=== PATIENT | female | born 1965 | race African-American/Black ===

== ENCOUNTER 2023-10-03 05:03 | Day surgery (SDC) | payer OTHER ==
[2023-09-30 08:18] VITALS: BMI 32.5
[2023-10-03] MEDS ORDERED: ROPIVACAINE HCL 0.5% 30ML VIAL ONE (11:00)
[2023-10-03] MEDS ORDERED: LIDOCAINE HCL 2% (20ML MULTI-DOSE VIAL) ONE (11:00)
[2023-10-03] MEDS ORDERED: MIDAZOLAM HCL 2 MG/2 ML SINGLE DOSE VIAL ONE ×2 (11:01→11:23)
[2023-10-03] MEDS ORDERED: PROPOFOL 20 ML ONE (13:36)
[2023-10-03] MEDS ORDERED: ceFAZolin SODIUM 1 GM VIAL IVPB ONE (13:45)
[2023-10-03] MEDS ORDERED: ONDANSETRON 4 MG/2 ML VIAL ONE (14:07)
[2023-10-03] MEDS ORDERED: FENTANYL CITRATE/PF 50 MCG/ML VIAL ONE (14:07)
[2023-10-03] MEDS ORDERED: DEXAMETHASONE SOD PHOSPHATE 4 MG/1 ML VIAL ONE (14:07)
[2023-10-03] MEDS ORDERED: KETOROLAC TROMETHAMINE 30 MG/1 ML VIAL ONE (14:44)
[2023-10-03] MEDS ORDERED: ONDANSETRON 4 MG/2 ML VIAL IVPUSH PRN (15:04)
[2023-10-03] MEDS ORDERED: oxyCODONE HCL 5 MG TABLET PO PRN (15:04)
[2023-10-03] MEDS ORDERED: LACTATED RINGERS SOLUTION 1,000 ML IV SCH (15:15)
[2023-10-03 17:12] VITALS: PULSE 76
[2023-10-03 18:28] VITALS: BP 142/86; RESP 20; TEMP 97.3
== END 2023-10-03 18:20 | disposition home or self-care (01) ==
LOC: JASU-SURG 05:03
PROVIDERS: ATTEND Orthopaedic Surgery
PROC: 0PB94ZZ Excision of Right Clavicle, Percutaneous Endoscopic Approach (ICD-10-PCS; principal; 2023-10-03 11:30)
DX: M75.41 Impingement syndrome of right shoulder (principal); M19.011 Primary osteoarthritis, right shoulder; M75.21 Bicipital tendinitis, right shoulder
CPT/HCPCS: 94760